=== PATIENT | female | born 1930 | race Hispanic/Latino ===

== ENCOUNTER 2016-05-17 16:02 | Emergency (ER) | payer MEDICARE ==
--- NOTE | 2016-05-17 16:17 | Emergency Department Report ---
ED CPR HPI - General Stated Complaint: CARDIAC ARREST Time Seen by Provider: 05/17/16 16:12 Source: EMS Mode of arrival: Stretcher Limitations: Altered Mental Status, Physical Limitation - History of Present Illness Initial Comments: 86-year-old female presents to the hospital status post cardiac arrest. As a witnessed arrest at the [facility] at aprox 3:29p. Patient was found to BMP a upon EMS arrival. Patient received epinephrine 3 in the field as well as 1 defibrillator shocked for V. fib. After defibrillation rhythm deteriorated to asystole and remained in asystole upon arrival to the ED. Patient was intubated by EMS with a 7.0 ET tube 21 at the lip. Patient presents to the ED pulseless and apneic. ED Review of Systems ROS: Stated complaint: CARDIAC ARREST Other details as noted in HPI Comment: Unobtainable due to pts medical conditions ED Physical Exam - Other Other exam information: General: unresponsive Head exam: Atraumatic, normocephalic Eyes exam: Pupils fixed and dilated ENT: Orally intubated 7.0 ET tube 21 at the lip Neck exam: Normal inspection Respiratory exam: Equal breath sounds with bagging clear to auscultation Cardiovascular: Pulseless Abdomen: Soft, nondistended. Vomitus noted Extremity: No spontaneous movement Back: Normal Inspection Neurologic: GCS equals 3 Psychiatric: Unresponsive Skin: Warm, dry, intact ED Course - Reevaluation(s) Reevaluation #1: 05/17/16 16:16 Pt received d50, 1 amp bicarb, 1 epi upon arrival with continued cpr. Pt remained in asystole time of 16:06 05/17/16 16:17 ED Medical Decision Making - Medical Decision Making Despite resuscitation efforts patient remained in asystole, time of 16: 06. Pt's family (cousin) informed of at 17:08 - Differential Diagnosis mi, pe, arrhythmia, CVA Critical Care Time: Yes Critical care time in (mins) excluding proc time.: 10 Critical care attestation.: If time is entered above; I have spent that time in minutes in the direct care of this critically ill patient, excluding procedure time. ED Disposition Clinical Impression: Cardiopulmonary arrest Disposition: Is pt being admited?: No Condition: Stable Referrals: PRIMARY CARE,MD [Primary Care Provider] - 3-5 Days Time of Disposition: 16:18
[2016-05-17 19:02] VITALS: BP 0/0
[2016-05-17] MEDS ORDERED: D50W (25GM) IV ONE (21:37)
[2016-05-17] MEDS ORDERED: SODIUM BICARBONATE IV ONE (21:37)
[2016-05-17] MEDS ORDERED: ADRENALIN ONE (21:37)
== END 2016-05-17 19:58 ==
LOC: ED 16:02
DX: I46.9 Cardiac arrest, cause unspecified (principal)
CPT/HCPCS: 92950; 99285; J0171